=== PATIENT | female | born 2005 | race Two or more races ===

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

== ENCOUNTER 2024-08-01 16:15 | Emergency (ER) | payer MEDICAID ==
[~2024-08-01] VITALS: Ht 175.3 cm; Wt 96.0 kg
--- NOTE | 2024-08-01 17:44 | DVH ---
EXAM: XY L ANKLE 3 VIEW CLINICAL HISTORY: pain COMPARISON: None TECHNIQUE: XY L ANKLE 3 VIEW Findings/Impression: 3 views of the left ankle. Minimally displaced avulsion fracture of the proximal 5th metatarsal. Mild to moderate soft tissue ed julián. There is no evidence of dislocation, blastic, or lytic lesions. No radiopaque foreign bodies. Moderate joint effusion.
--- NOTE | 2024-08-01 17:45 | DVH ---
EXAM: XY L FOOT 3 VIEW XRAY CLINICAL HISTORY: pain COMPARISON: None TECHNIQUE: XY L FOOT 3 VIEW XRAY Findings/Impression: 3 views of the left foot. Minimally displaced avulsion fracture of the proximal 5th metatarsal. Mild soft tissue edema. There is no evidence of dislocation, blastic, or lytic lesions. No radiopaque foreign bodies.
[2024-08-01] MEDS ORDERED: IBUP-1455 PO (18:40)
--- NOTE | 2024-08-01 18:41 | ED.PDOC ---
Musculoskeletal HPI Comments 19-year-old female complaining of left ankle pain. Patient states she was walking when she tripped on her sandal twisting her left ankle. Has not been able to bear any weight. Injury happened approximate 1 hour ago. Chief Complaint: Lower Extremity Time Seen by MD: 17:00 Primary Care Provider: MICHELLE Reviewed Notes: Nurses Notes Allergies: Coded Allergies: No Known Drug Allergy (Verified Allergy, Unknown, 10/31/18) PT STATES NKDA; TRANSLATED FROM MALTESE TO ROMANIAN BY NURSE ClariFI Meds No Active Prescriptions or Reported Meds Information Source: Patient Mode of Arrival: Wheelchair Location: Left Extremity Location: Ankle Past Medical History PAST MEDICAL HISTORY: Denies Surgical History: Denies all surgeries FERTILIZER MIXER History: No Pertinent FERTILIZER MIXER History Constitutional: denies: chills, diaphoresis, fatigue, fever, malaise, sweats, weakness, others EENTM: denies: blurred vision, double vision, ear bleeding, ear discharge, ear drainage, ear pain, ear ringing, eye pain, eye redness, hearing loss, mouth pain, mouth swelling, nasal discharge, nose bleeding, nose congestion, nose pain, photophobia, tearing, throat pain, throat swelling, voice changes, others Respiratory: denies: cough, hemoptysis, orthopnea, SOB at rest, shortness of breath, SOB with excertion, stridor, wheezing, others Cardiovascular: denies: chest pain, dizzy spells, diaphoresis, Dyspnea on exertion, edema, irregular heart beat, left arm pain, lightheadedness, palpitations, PND, syncope, others Gastrointestinal: denies: abdomen distended, abdominal pain, blood streaked bowels, constipated, diarrhea, dysphagia, difficulty swallowing, hematemesis, melena, nausea, poor appetite, poor fluid intake, rectal bleeding, rectal pain, vomiting, others Genitourinary: denies: abnormal vagina bleeding, burning, dyspareunia, dysuria, flank pain, frequency, hematuria, incontinence, pain, , vagina discharge, urgency, others Neurological: denies: dizziness, fainting, headache, left sided numbness, left sided weakness, numbness, paresthesia, pre-existing deficit, right sided numbness, right sided weakness, seizure, speech problems, tingling, tremors, weakness, others Musculoskeletal: reports: joint pain; denies: back pain, gout, joint swelling, muscle pain, muscle stiffness, neck pain, others Physical Exam General Appearance: No Apparent Distress, Normal HEENT: Normal ENT Inspection, Pharynx Normal, TMs Normal Neck: Full Range of Motion, Non-Tender, Normal, Normal Inspection Respiratory: Chest Non-Tender, Lungs Clear, No Accessory Muscle Use, No Respiratory Distress, Normal Breath Sounds Cardiovascular: No Edema, No JVD, No Murmur, No Gallop, Normal Peripheral Pulses, Regular Rate/Rhythm Breast Exam: Deferred Gastrointestinal: No Organomegaly, Non Tender, No Pulsatile Mass, Normal Bowel Sounds, Soft Genitalia: Deferred Pelvic: Deferred Rectal: Deferred Extremities: No calf tenderness, Normal capillary refill, Normal inspection, Normal range of motion, Non-tender, No pedal edema Musculoskeletal : Location: Left Extremity Location: Ankle (Swelling noted to the left lateral ankle. Unable to bear weight. Distal circulation motor skills of left foot intact.) Apperance: Normal Neurologic: Alert, ritual circumciser II-XII nml as Tested, No Motor Deficits, Normal Affect, Normal Mood, No Sensory Deficits Cerebellar Function: Normal Reflexes: Normal Skin: Dry, Normal Color, Warm Lymphatic: No Adenopathy Was a procedure done? Was a procedure done?: No Differential Diagnosis EXT Differential Diagnosis: Fracture, Sprain, Dislocation X-Ray, Labs, Meds, VS Vital Signs Date Time Temp Pulse Resp B/P (MAP) Pulse Ox O2 Delivery O2 Flow Rate FiO2 08/01/24 16:55 98.3 110 16 131/87 (102) 98 X-Ray, Labs, Meds, VS Comment Imaging: X-rays and CT scans were reviewed and interpreted by this provider, imaging shows no fractures and no pathological disease. Pending radiology review. Laboratory: Labs reviewed and interpreted by this provider. No significant abnormalities noted. Patient has prior medical visits reviewed. Med reconciliation performed Vital signs reviewed Time of 1ST Reevaluation: 18:40 Reevaluation 1ST: Improved Patient Education/Counseling: Diagnosis, Treatment, Need For Follow Up (Follow up with desktop support specialist in next 3-5 days.) Family Education/Counseling: Diagnosis Departure 1 Departure Time of Disposition: 18:39 Impression: Primary Impression: Foot fracture, left Qualified Codes: S92.902A - Unspecified fracture of left foot, initial encounter for closed fracture Disposition: HOME / SELF CARE / HOMELESS Condition: Fair e-Prescriptions Ibuprofen Micronized (Ibuprofen) 800 Mg Tab 800 MG PO TID PRN, #30 TAB Prov: TRENT WASHBURN 08/01/24 Discharged With: Self Critical Care Note Critical Care Time?: No Stability Stability form required: No Heart Score Heart Score: Heart Score Response (Comments) Value History N/A 0 EKG N/A 0 Age N/A 0 Risk Factors N/A 0 Troponin N/A 0 Total 0 TRENT WASHBURN Aug 01, 2024 18:41
[2024-08-01 19:05] VITALS: BP 131/87; PULSE 110; RESP 16; TEMP 98.3; O2SAT 98
== END 2024-08-01 19:10 | disposition home or self-care (01) ==
LOC: ER 16:15
DX: S92.352A Displaced fracture of fifth metatarsal bone, left foot, initial encounter for closed fracture (principal); W18.49XA Other slipping, tripping and stumbling without falling, initial encounter; Y93.01 Activity, walking, marching and hiking; Y92.89 Other specified places as the place of occurrence of the external cause; Y99.8 Other external cause status
CPT/HCPCS: 73610; 73630